=== PATIENT | female | born 1950 | race Caucasian/White ===

== ENCOUNTER 2017-10-14 08:48 | Day surgery (SDC) | payer MEDICARE ==
[2017-10-07 13:45] VITALS: BMI 34.1
[~2017-10-14 08:48] MED LIST: DEXAMETHASONE SOD PHOSPHATE 10 MG/ML 1 ML VIAL IV ONE; DEXAMETHASONE SOD PHOSPHATE 4 MG/ML 1 ML VIAL IV ONE; LACTATED RINGERS 1,000 ML IV SCH; MELOXICAM 7.5 MG TAB PO ONE; ONDANSETRON 4 MG/2 ML VIAL IVP ONE; ceFAZolin 1,000 MG in DEXTROSE/WATER 1 50ML.BAG IV ONE
[2017-10-14] MEDS: OXYMETAZOLINE 0.05% NASL SPRAY 1 SPRAY BOTTLE NASAL ONE ×5 (09:20→09:55)
[2017-10-14] MEDS ORDERED: LIDOCAINE 1% 20 ML VIAL (10MG/ML) FOR IV START INTRADERMA ONE (09:20)
[2017-10-14] MEDS ORDERED: LIDOCAINE 1%-EPI 1:100,000 20 ML VIAL SQ ONE ×2 (10:35→11:07)
[2017-10-14] MEDS ORDERED: BUPIVACAINE (PF) 0.5% 30 ML VIAL SQ ONE ×2 (10:36→11:07)
[2017-10-14] MEDS ORDERED: SUCCINYLCHOLINE CHLORIDE 100 MG/5 ML SYR IV ONE (10:43)
[2017-10-14] MEDS ORDERED: fentaNYL (PF) 50 MCG/ML 2 ML AMP ONE (10:43)
[2017-10-14] MEDS ORDERED: LIDOCAINE 1% INJ 10MG/ML (20 ML MDV) ONE (10:43)
[2017-10-14] MEDS ORDERED: MIDAZOLAM 2 MG/2 ML VIAL ONE (10:43)
[2017-10-14] MEDS ORDERED: PROPOFOL 10 MG/ML 20 ML VIAL IV ONE (10:43)
[2017-10-14] MEDS ORDERED: DEXAMETHASONE SOD PHOS (MDV) 100 MG/10 ML VIAL ONE (10:43)
[2017-10-14] MEDS ORDERED: BACITRACIN 500 UNIT/GM OINT 28.4 GM TUBE TOPICAL ONE (11:35)
[2017-10-14] MEDS ORDERED: LACTATED RINGERS 1,000 ML IV ONE (12:06)
--- NOTE | 2017-10-14 13:01 | P.OP ---
Date of Procedure: 10/14/17 Preoperative Diagnosis: Deviated nasal septum Nasal septal perforation Hypertrophy of inferior nasal turbinates External nasal deformity Postoperative Diagnosis: Same Procedure(s) Performed: Revision open rhinoplasty Septoplasty Closure of septal perforation Outfracture compression and submucosal resection of the inferior nasal turbinates Anesthesia: YENIFERA Surgeon: Daniel Izaguirre Estimated Blood Loss (ml): 20 Pathology: other (Sinonasal) Condition: stable Disposition: PACU Indications for Procedure: This patient had a previous rhinoplasty by another surgeon and unfortunately developed a septal perforation and some scarring an asymmetry to the nose. The patient would like to have a revisional rhinoplasty was very specific in which she directed me only to correct the middle vault region of the nose. She did not want any bony work done. She did not want any tip work done. She just wanted the middle vault corrected. It was irregular bony and she can feel a lump. Patient also complains of persistent nasal obstruction which was a constant problem. Operative Findings: Patient was found to have a deviated nasal septum with a large obstructive inferior turbinates. The patient also had a fairly large perforation seen. She was found have an irregular nose with a widened middle vault and scar tissue and or lumps or bumps were palpated. Description of Procedure: This patient was taken to the operative room and placed in the supine position. A general inhalation anesthetic was administered to the patient by mask and subsequently intubated with a cuffed endotracheal tube by the department of anesthesia with a functioning IV line in place. Patient was monitored throughout the entire case by the department of anesthesia with a functioning IV line in place. The face was sterilely prepped and draped in usual fashion. The septum and nose were injected with lidocaine 1% with epinephrine 1 100,000. 10 minutes were allowed wait for full vasoconstrictive effects to take place. At this time a caudal incision was made over the caudal portion of the left septum down to the mucoperichondrial a mucoperichondrial flap was developed to the extent of visualization on the left. A perforation was identified and the edges of the perforation were roughened. We a a releasing incision superiorly and rotated mucosal flap downward to close the defect. We took septal cartilage and rotated that into the defect for a secondary cartilaginous closure. After the septal perforation was closed we made some crosshatching incisions and straighten the septum. Incision was closed with a 40 rapid Vicryl in a quilting stitch was used to reapproximate the septal flaps. To summarize the septum was straightened the septal perforation was closed with a mucosal flap. Nicole splints were inserted at the end of the case. We then paid attention to the inferior turbinates that were found be large and obstructive. We entered the inferior turbinates with a microdebrider and we removed bone and submucosal elements with use of a microdebrider. After the inferior turbinates underwent a submucosal resection in the anterior 1 cm of the inferior turbinates there were outfractured and compressed. The patient had previous turbinate surgery and there was a large section of the middle portion of the right middle turbinate that was missing so are some mucosa resection with very conservative only in the 1 cm area anteriorly. Again there was a previous inferior turbinate resection noted worse on the right than on the left. Our so mucosa resection was extremely conservative. Attention was then paid to the external nose where a columellar incision was made and extended into a marginal incision and the skin was lifted off the nasal tip and dorsum. We discovered that the previous rhinoplasty caused the deformity to the lower lateral cartilages. There was a concavity versus a convex edema noted on the right side and there was a large amount of irregularity and scarring on the left. We remove the scarring we corrected the contour of the right lower lateral cartilage. The upper lateral cartilages were splayed we sewed them together to get them to reapproximate and that's where the widening of the middle vault region occurred. There was scarring an aberrant cartilage that was floating in the area that we removed and the nose had an excellent cosmetic appearance. After the nose was straightened we closed the incision of the columella with a 5-0 Prolene we closed the mucosa with a 50 rapid Vicryl the nose was taped and casted in usual fashion. The patient tolerated this well and follow-up will be in the office in 1 week for recheck the patient is to contact me if any problems should arise.
[2017-10-14 13:13] VITALS: TEMP 97.1
[2017-10-14] MEDS: HYDROmorphone 0.5 MG/0.5 ML SYRINGE IVP PRN ×2 (13:30→14:00)
[2017-10-14] MEDS ORDERED: ONDANSETRON 4 MG/2 ML VIAL IVP ONE (13:41)
[2017-10-14 13:44] VITALS: RESP 16
[2017-10-14 15:01] VITALS: BP 148/80; PULSE 88
== END 2017-10-14 15:36 | disposition home or self-care (01) ==
LOC: OR 08:48
PROVIDERS: ATTEND Otolaryngology
DX: J34.2 Deviated nasal septum (principal); J34.89 Other specified disorders of nose and nasal sinuses; J34.3 Hypertrophy of nasal turbinates; M95.0 Acquired deformity of nose; I10 Essential (primary) hypertension; G47.33 Obstructive sleep apnea (adult) (pediatric); K21.9 Gastro-esophageal reflux disease without esophagitis; E66.9 Obesity, unspecified; Z68.34 Body mass index [BMI] 34.0-34.9, adult; Z79.2 Long term (current) use of antibiotics; Z79.1 Long term (current) use of non-steroidal anti-inflammatories (NSAID); Z79.890 Hormone replacement therapy; Z79.51 Long term (current) use of inhaled steroids; Z79.52 Long term (current) use of systemic steroids; Z79.899 Other long term (current) drug therapy; Z88.2 Allergy status to sulfonamides; Z91.011 Allergy to milk products
CPT/HCPCS: 88300; 30630; 30140; 30430; J2250; J1100 ×2; J2405; J2001; J3010; J0690; J0330; J2704; J1170